=== PATIENT | female | born 1990 | race Caucasian/White ===

== ENCOUNTER 2022-05-22 09:13 | Outpatient (CLI) | payer OTHER | END 2022-05-22 09:47 | disposition home or self-care (01) | LOC: RX STUDY 09:13 | DX: R13.10 Dysphagia, unspecified (principal) ==

== ENCOUNTER 2024-11-26 08:48 | Outpatient (CLI) | payer OTHER | END 2024-11-26 08:57 | disposition home or self-care (01) | LOC: TOM 08:48 | PROVIDERS: ATTEND Student in an Organized Health Care Education/Training Program | DX: N84.1 Polyp of cervix uteri (principal); D25.9 Leiomyoma of uterus, unspecified; N93.8 Other specified abnormal uterine and vaginal bleeding ==

== ENCOUNTER 2025-02-02 09:27 | Emergency (ER) | payer OTHER ==
[~2025-02-02] VITALS: Ht 162.6 cm; Wt 59.0 kg
[2025-02-02 12:01] LABS: BASO % 0.5 % (0.1-1.2); EOS # 0.06 (0.04-0.54); EOS % 0.5 % (0.7-7.0); HEMATOCRIT 42.1 % (34.1-44.9); HEMOGLOBIN 14.5 g/dL (11.2-15.7); LYMPH # 2.23 (1.18-3.74); LYMPH % 20.1 % (19.3-53.1); MEAN CORPUSCULAR HEMOGLOBIN 29.7 pg (25.6-32.2); MONO # 0.76 (0.24-0.82); MONO % 6.8 % (4.7-12.5); NEUT # 7.89 (1.56-6.13); NEUT % 71.2 % (34.0-71.1); PLATELET COUNT 268 K/uL (163-369); RED BLOOD COUNT 4.89 M/uL (3.93-5.22); RED CELL DISTRIBUTION WIDTH 12.2 % (11.6-14.4)
[2025-02-02 12:20] LABS: PH,URINE 6.5 (5.0-8.0); URINE APPEARANCE Clear; URINE BILIRRUBIN Negative (NEGATIVE); URINE BLOOD Negative; URINE COLOR Yellow; URINE GLUCOSE Negative (NEGATIVE); URINE KETONE Negative (NEGATIVE); URINE LEUKOCYTE Negative; URINE NITRATE Negative; URINE PROTEIN Negative (NEGATIVE); URINE UROBILINOGEN 0.2 E.U./dl
[2025-02-02 12:24] LABS: URINE BACTERIA 81.9 uL (0.0-1933); URINE RBC 2.3 uL (0.0-20.8)
[2025-02-02 12:37] LABS: COVID-19 AG NEGATIVE (NEGATIVE)
[2025-02-02 12:44] LABS: INFLUENZA A AG NEGATIVE (NEGATIVE); INFLUENZA B AG NEGATIVE (NEGATIVE)
[2025-02-02 12:53] LABS: BILIRUBIN TOTAL 0.4 mg/dL (0.3-1.2); CALCIUM 9.7 mg/dL (8.5-10.1); CREATININE SERUM 0.76 mg/dL (0.55-1.02); GFR 86.6; GLOBULINA 4.6 G/DL (2.4-3.5); POTASSIUM 4.42 mEq/L (3.5-5.1); TOTAL PROTEIN 8.6 gm/dL (6.4-8.2)
[2025-02-02 12:58] LABS: URINE EPITHELIAL CELLS 0.9 uL (0.0-38.8); URINE WBC 0.6 uL (0.0-23.2)
== END 2025-02-02 18:36 | disposition home or self-care (01) ==
LOC: ER 09:27
PROVIDERS: Emergency Medicine
DX: O26.891 Other specified pregnancy related conditions, first trimester (principal); Z3A.01 Less than 8 weeks gestation of pregnancy; Z20.822 Contact with and (suspected) exposure to COVID-19